=== PATIENT | female | born 1960 | race Two or more races ===

== ENCOUNTER 2024-07-17 14:53 | Emergency (ER) | payer MEDICAID, SELFPAY ==
[2024-07-17 14:54] VITALS: BMI 34.0
[2024-07-17 15:26] VITALS: BP 124/74; PULSE 89; RESP 18; TEMP 36.8; O2SAT 99
--- NOTE | 2024-07-17 15:35 | EKG_ITS ---
[facility] Test Date: 2024-07-17 Pat Name: LAUREN GIRALDO Department: Room: - Gender: Female Bath Tester: : 1960 Requested By: Asa Padilla Order Number: [id number] Reading MD: Asa Padilla Measurements Intervals [place] Rate: 75 P: 46 TN: 157 QRS: 33 QRSD: 81 T: 47 QT: 356 QTc: 399 Interpretive Statements SINUS RHYTHM Compared to ECG 12/15/2019 08:22:54 T-wave abnormality no longer present /store/S0/[id number]/ecg/[id number].pdf
--- NOTE | 2024-07-17 15:41 | PD.EDABDPN ---
ED Abdominal Pain RME/HPI General Chief Complaint: Abdominal Pain Stated complaint: ABD PAIN, BLOATING, AND VOMITING Time seen by provider: 07/17/24 15:31 Arrival date/time: 07/17/24 14:53 RME / HPI RME / HPI narrative: Patient is a 64-year-old female who presents with complaint of abdominal plain and bloating with vomiting onset 2 days ago. Patient states she was recently treated for a urinary tract infection. Related Data Previous Rx's ?Medication ?Instructions ?Recorded ondansetron 4 mg disintegrating 4 mg PO Q8H PRN nausea and 09/28/22 tablet vomiting #10 tabs Allergies Allergy/AdvReac Type Severity Reaction Status Date / Time ampicillin Allergy Severe DIFF Verified 07/17/24 14:58 BREATHING, RASH nitrofurantoin Allergy Severe Rash Verified 07/17/24 14:58 sulfamethoxazole Allergy Severe RESP Verified 07/17/24 14:58 trimethoprim Allergy Severe RESP Verified 07/17/24 14:58 Penicillins Allergy Intermediate RESP Verified 07/17/24 14:58 Review of Systems Review of Systems Narrative Review of Systems: Review of systems negative except as outlined in the HPI. ED Exam Narrative Physical exam: Constitutional: no acute distress, age appropriate, non-toxic Eyes: PERRL, conjunctivae w/o pallor, EOMI HENT: normocephalic, atraumatic. Oral mucosa moist Respiratory Effort: no stridor, effort normal, no retractions Breath sounds: Clear bilaterally; No rales, No rhonchi, No wheezing Cardiovascular: regular rhythm, S1 and S2 normal, no murmur Abdominal: soft; non-distended. Generalized tenderness, no guarding Musculoskeletal: no deformities, no swelling, no LE edema Skin: warm, dry; No rash Neurology: alert, oriented X 4. Normal gait. Moves all extremities spontaneously. Psychology: cooperative, normal mood Course Orders Category Date Time Status CT Screening NOW Care 07/17/24 15:35 Active EKG (ED ONLY) *Do not use* NOW Care 07/17/24 15:[address] abdomen pelvis w con Stat Exams 07/17/24 15:35 Ordered EKG (ED Only) Stat Exams 07/17/24 15:35 Ordered CBC Stat Lab 07/17/24 15:35 Ordered CMP [Comprehensive Metabolic Panel] Stat Lab 07/17/24 15:35 Ordered Lipase Stat Lab 07/17/24 15:35 Ordered Troponin I Stat Lab 07/17/24 15:35 Ordered Urinalysis Stat Lab 07/17/24 15:35 Ordered HYDROcodone*/APAP 5/325 [[place] 5/325] Med 07/17/24 15:36 Discontinued 1 tab PO X1 ONE Vital Signs Vital signs: Vital Signs Temperature 98.3 F 07/17/24 15:26 Pulse Rate 89 07/17/24 15:26 Respiratory Rate 18 07/17/24 15:26 Blood Pressure 124/74 07/17/24 15:26 Pulse Oximetry (%) 99 07/17/24 15:26 Oxygen Delivery Method Room Air 07/17/24 15:26 Abdominal Pain MDM Patient data External records reviewed:: [facility] previous records Clinical information provided by:: patient Social determinants that could affect healthcare access:: none Patient has the following chronic illnesses:: None How is presenting disease/condition affected by chronic disease/condition?: no chronic disease Evaluation data The following diagnostics were reviewed and interpreted by me:: lab results and radiology exam(s) Lab and/or radiology exams considered but not ordered:: None Medications / Prescriptions Medications or Prescriptions considered but not ordered:: N/A Medication administrations:: Medication Administration History Discontinued Medications Hydrocodone Bitart/Acetaminophen (Hydrocodone/Apap 5/325 Tablet) 1 tab PO X1 ONE Stop: 07/17/24 15:37 See above Consultations Consultation(s) initiated? (list below): No Diagnosis Differential diagnosis abdominal pain: abdominal pain, acute appendicitis, constipation, diverticulitis, gastroenteritis, pancreatitis and small bowel obstruction Admission Indicated Admission indicated?: not indicated Admission Request Was there a request for admission?: No Discharge Plan Prescriptions/Referrals Prescriptions/Med Rec: No Action ondansetron 4 mg tablet,disintegrating 4 mg PO Q8H PRN (Reason: nausea and vomiting) Qty: 10 0RF Patient/Caregiver Discharge Instructions Print Language: Urdu
--- NOTE | 2024-07-17 15:47 | PC.NURSE ---
Patient in recovery and requested non-narcotic medications. Provider aware. Bailey PO cancelled.
[2024-07-17] MEDS: ACETAMINOPHEN 500 MG TABLET 1000 MG PO (15:54)
[2024-07-17] MEDS: IBUPROFEN TAB 600 MG TABLET PO (15:55)
--- NOTE | 2024-07-17 16:26 | PD.EDRME ---
Rapid Medical Screening Exam RME Arrival date/time: 07/17/24 14:53 Chief Complaint: Abdominal Pain Time Seen by Provider: 07/17/24 15:31 Vital signs: Vital Signs Temperature 98.3 F 07/17/24 15:26 Pulse Rate 89 07/17/24 15:26 Respiratory Rate 18 07/17/24 15:26 Blood Pressure 124/74 07/17/24 15:26 Pulse Oximetry (%) 99 07/17/24 15:26 Oxygen Delivery Method Room Air 07/17/24 15:26 E Narrative: Patient is a 64-year-old female who presents with complaint of abdominal plain and bloating with vomiting onset 2 days ago. Patient states she was recently treated for a urinary tract infection.
[2024-07-17 16:27] LABS: Basophils % (Auto) 0 % (0-2.5); Eosinophils # (Auto) 0.2 Thou/mm3 (0.0-0.5); Eosinophils % (Auto) 3 % (0-10); Hematocrit 39.1 % (36.0-46.0); Hemoglobin 13.2 g/dL (12.0-16.0); Immature Granulocytes % (Auto) 0 % (0-0); Immature Granulocytes Auto 0.03 Thou/mm3 (0.00-0.00); Lymphocytes % (Auto) 42 % (10-50); Mean Corpuscular HGB Conc 33.8 g/dl (31.0-37.0); Mean Corpuscular Hemoglobin 30.6 pg (25.0-35.0); Mean Corpuscular Volume 91 fL (80-100); Monocytes # (Auto) 0.7 Thou/mm3 (0.0-0.8); Monocytes % (Auto) 10 % (0-12); Neutrophils # (Auto) 3.2 Thou/mm3 (1.8-7.7); Neutrophils % (Auto) 44 % (37-80); Nucleated Red Blood Cell % 0 /100 WBC (0); Platelet Count 243 Thou/mm3 (140-440); RDW Standard Deviation 42.6 fL (36.4-46.3); Red Blood Count 4.32 Miln/mm3 (4.00-5.20); White Blood Count 7.2 Thou/mm3 (3.6-11.0)
[2024-07-17 16:42] LABS: Collection Type, Urine Clean Catch; Squamous Epithelial Cell,Urine 0 /hpf (0-5)
[2024-07-17 16:47] LABS: Bacteria,Urine Rare; Bilirubin,Urine Negative (Negative); Blood,Urine Negative (Negative); Clarity,Urine Clear (Clear/Hazy); Color,Urine Lt-Yellow (Lt Yel-Yel); Glucose, Urine Negative (Negative); Ketones,Urine Negative (Negative); Leukocyte Esterase,Urine Negative (Negative); Nitrite,Urine Negative (Negative); Protein,Urine Negative (Neg - Trace); RBC,Urine 1 /hpf (0-3); Specific Gravity,Urine 1.016 (1.001-1.035); Urobilinogen,Urine Negative mg/dL (0.0-1.0); WBC,Urine 22 /hpf (0-5)
[2024-07-17 16:50] LABS: Alanine Aminotransferase 16 U/L (10-49); Albumin, Serum 4.7 gm/dL (3.4-4.8); Albumin/Globulin Ratio 1.4 (1.2-2.2); Alkaline Phosphatase 104 U/L (46-116); Anion Gap 9 (7-16); Aspartate Amino Transferase 18 U/L (0-34); BUN/Creatinine Ratio 21 Ratio (12-20); Bilirubin,Total 0.3 mg/dL (0.3-1.2); Blood Urea Nitrogen 21 mg/dL (9-23); Carbon Dioxide 27.6 mMol/L (20.0-31.0); Chloride 101 mMol/L (98-107); Estimated Creatinine Clearance 62.5 mL/min (>60); Globulin 3.3 gm/dL (2.3-3.5); Glucose 107 mg/dL (74-106); Lipase 52 U/L (12-53); Osmolality,Calculated 278 (275-295); Potassium 5.1 mMol/L (3.4-5.1); Sodium 138 mMol/L (136-145); Troponin I < 0.002 ng/mL (0.0-0.045); eGFR > 60 See Note
--- NOTE | 2024-07-17 19:00 | PC.NURSE ---
no answer from lobby when called for room in ed
--- NOTE | 2024-07-17 19:47 | PC.NURSE ---
called pt from lobby and outside for revitals @ 1947 NA
--- NOTE | 2024-07-17 20:47 | PC.NURSE ---
NO ANSWER AT ER LOBBY OR OUT SIDE ER TO PUT TO ROOM TO DO IV FOR CT.
--- NOTE | 2024-07-17 20:51 | PC.NURSE ---
Pt has been called 3 times from lobby without answer at 1947, 2004, 2029.
== END 2024-07-17 20:49 | disposition left against medical advice (07) ==
LOC: SERX 21:04
PROVIDERS: Physician Assistant; Emergency Provider Emergency Medicine
DX: R14.0 Abdominal distension (gaseous) (principal); R10.9 Unspecified abdominal pain; R11.10 Vomiting, unspecified; Z53.29 Procedure and treatment not carried out because of patient's decision for other reasons
CPT/HCPCS: 36415; 80053; 81001; 83690; 84484; 85025; 93005; 99281; A9270

== ENCOUNTER → 2025-02-20 | Outpatient (CLI) | payer MEDICAID, SELFPAY ==
--- NOTE | 2025-02-20 09:15 | XR_ITS ---
Examination: Screening digital mammography, bilateral Computer aided detection 3-D breast Tomosynthesis, bilateral Date and time of exam: February 20, 2025 0828 hours Compared to mammograms dating to September 08, 2005 Indication: Screening Technique: Nonmagnified MLO, CC views of the breasts to been obtained, reconstructed from 3-D Tomosynthesis images. R2 computer aided detection program utilized for evaluation of suspicious masses and/or abnormal calcifications. 3-D Tomosynthesis images obtained. Findings: Scattered areas of fibroglandular density. Benign calcifications. No interval suspicious masses Impression: BI-RADS category II: Benign Findings. Recommend 1 year follow-up mammogram.
== END | disposition home or self-care (01) ==
LOC: CDIM 08:17
PROVIDERS: Referring Provider Physician Assistant; Visit Provider Physician Assistant
DX: Z12.31 Encounter for screening mammogram for malignant neoplasm of breast (principal); R92.323 Mammographic fibroglandular density, bilateral breasts; R92.1 Mammographic calcification found on diagnostic imaging of breast
CPT/HCPCS: 77063; 77067